=== PATIENT | female | born 1935 | race Caucasian/White ===

== ENCOUNTER 2017-05-25 19:38 | Emergency (ER) | payer MEDICARE ==
[2017-05-25 20:09] LABS: BASOPHILS # (AUTO) 0.07 x10^3/uL (0-0.1); BASOPHILS % (AUTO) 1 % (0-1); EOSINOPHILS # (AUTO) 0.03 x10^3/uL (0-0.4); EOSINOPHILS % (AUTO) 0 % (1-7); LYMPHOCYTES # (AUTO) 1.66 x10^3/uL (1-3.4); LYMPHOCYTES % (AUTO) 20 % (22-44); MD NO; MEAN CORPUSCULAR HEMOGLOBIN 27.4 pg (27.0-34.8); MEAN CORPUSCULAR HGB CONC 32.7 g/dL (32.4-35.8); MEAN PLATELET VOLUME 9.9 fL (7.4-10.4); MONOCYTES # (AUTO) 0.73 x10^3/uL (0.2-0.8); MONOCYTES % (AUTO) 9 % (2-9); NEUTROPHILS # (AUTO) 5.82 x10^3/uL (1.8-6.8); NEUTROPHILS % (AUTO) 70 % (42-75); PLATELET COUNT 289 x10^3/uL (130-400); RED CELL DISTRIBUTION WIDTH 14.7 % (9.6-15.2)
[2017-05-25 20:17] LABS: ALBUMIN 2.9 g/dL (3.4-5.0); ANION GAP 9 mmol/L (5-15); CALCIUM 8.9 mg/dL (8.5-10.1); CHLORIDE 103 mmol/L (98-107); CREATININE 0.84 mg/dL (0.55-1.02)
[2017-05-25 21:18] LABS: MICROSCOPIC INDICATED
[2017-05-25 21:32] LABS: CULTURE INDICATED? YES
[2017-05-25] MEDS ORDERED: DONE5TAB7 PO (21:45)
[2017-05-25] MEDS ORDERED: LEVO50TA PO (21:45)
[2017-05-25] MEDS ORDERED: DILT120T3 PO (21:45)
[2017-05-25] MEDS ORDERED: ASPI-496 PO (21:45)
[2017-05-25 23:01] VITALS: BP 140/75
== END 2017-05-25 23:39 | disposition home or self-care (01) ==
LOC: ED 22:35
DX: S60.222A Contusion of left hand, initial encounter (principal); F02.80 Dementia in other diseases classified elsewhere, unspecified severity, without behavioral disturbance, psychotic disturbance, mood disturbance, and anxiety; G30.1 Alzheimer's disease with late onset; R41.82 Altered mental status, unspecified; X58.XXXA Exposure to other specified factors, initial encounter; Y93.89 Activity, other specified; Y92.89 Other specified places as the place of occurrence of the external cause; Y99.8 Other external cause status
CPT/HCPCS: 29125; 36415; 80048; 81001; 82040; 85025; 87086; 99285